=== PATIENT | male | born 1985 | race Caucasian/White ===

== ENCOUNTER 2020-07-06 00:52 | Outpatient (CLI) | payer SELFPAY ==
[2020-07-06 18:31] LABS: SARS-CoV-2 RNA PCR Negative
== END 2020-07-06 00:53 | disposition home or self-care (01) ==
LOC: ANHCOVIDDT 00:53
PROVIDERS: Visit Provider Surgery
DX: Z01.812 Encounter for preprocedural laboratory examination (principal); Z20.828 Contact with and (suspected) exposure to other viral communicable diseases
CPT/HCPCS: 87635; C9803; U0003

== ENCOUNTER 2020-07-10 02:18 | Day surgery (SDC) | payer OTHER, SELFPAY ==
[2020-07-02 12:39] VITALS: BMI 33.5
[2020-07-10] VITALS (7 sets, daily range): BP systolic 104–144; BP diastolic 56–99; PULSE 53–72; RESP 12–20; TEMP 35.9–36.1; O2SAT 99–100; BMI 34.3
[2020-07-10] MEDS: ACETAMINOPHEN 500 MG TABLET 1000 MG PO (08:28)
[2020-07-10] MEDS: LACTATED RINGERS 1,000 ML 30 ML IV CONT ×2 (08:41→11:41)
[2020-07-10] MEDS: KETOROLAC 15 MG/ML VIAL (*BKC) IV PUSH (08:45)
--- NOTE | 2020-07-10 09:45 | WPDANESEPPF ---
Anes - Initial Pre Proc Eval Procedure: Operation Date: 07/10/20 10:00 Proposed Procedures p Laparoscopic Left Inguinal Hernia Repair with Mesh, Davinci Assisted - Kahlil Atkins DO Date/Time: 07/10/20 09:45 Surgeon: Kahlil Atkins DO Pre Op Diagnosis: left inguinal hernia Patient Data Age: 34 Gender: M Height: 6 ft 4 in Weight: 127.9 kg Last Vital Signs Temp 36.1 C L 07/10/20 08:50 Pulse 72 07/10/20 08:50 Resp 18 07/10/20 08:50 BP 128/69 07/10/20 08:50 Pulse Ox 100 07/10/20 08:50 Allergies Allergy/AdvReac Type Severity Reaction Status Date / Time Penicillins Allergy Mild Anaphylaxis Verified 07/10/20 08:25 Home Medications Medication Instructions Recorded Confirmed Type clonidine HCl 0.1 mg tablet 0.1 mg PO DAILY 06/19/20 07/10/20 History loratadine 10 mg capsule 10 mg PO DAILY 06/19/20 07/10/20 History Patient hx anesthesia problems: none Family hx anesthesia problems: none [facility] Past Medical History Medical History Hypertension Surgical History Surgical History (Updated 07/10/20 @ 09:49 by Yonathan Graf MD) History of ear surgery S/P tonsillectomy Family History Family History Grandparent Diabetes mellitus Malignant neoplasm of prostate Social History Social History Smoking status: Current every day smoker Tobacco type: e-cigarettes/vaping Second hand tobacco smoke exposure: Yes Alcohol intake: former Alcohol use details: QUITE 2015 Substance use: current Substance use type: marijuana Other substance usage details: SMOKES 5GM/WEEK Last use: DAILY Living arrangements: alone 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 Questions were solicited and answers provided to the satisfaction of the patient/family/POA.
--- NOTE | 2020-07-10 09:47 | WPDHPUPDATE1 ---
History and Physical Update Update Date/Time: 07/10/20 09:47 History and Physical has been reviewed, including an updated exam of the patient. There are NO changes in the patient's condition. Risks, benefits, and alternatives have been discussed and questions answered. Patient agrees to proceed with procedure.
[2020-07-10] MEDS: CLINDAMYCIN 900 MG/D5W 50 ML 900 MG/50 ML PIGGYBACK 50 MG IVPB (10:09)
--- NOTE | 2020-07-10 10:51 | SUR.OPER ---
Implant ProGrip Mesh LPG [id number], Exp 2022. Left Inguinal
--- NOTE | 2020-07-10 11:51 | PM.PROC ---
Procedure Note - Detailed Date of procedure: 07/10/20 Pre-op diagnosis: left inguinal hernia Post-op diagnosis: same (Indirect left inguinal hernia) Procedure performed: Laparoscopic left inguinal hernia repair with Progrip mesh, da Bhavin assisted Description of procedure: Procedure as well as risks, benefits, and alternatives were discussed with the patient. Written consent was obtained and placed in chart prior to procedure. Patient was brought back to surgical suite. He was placed supine on operating table. Time-out was done to confirm patient and procedure. He was then intubated by Anesthesia Department. His abdomen was prepped and draped in sterile fashion using chlorhexidine prep. 0.5% bupivacaine with epinephrine was infiltrated at each location for incision. An 8 mm incision was made in the left lateral abdomen, and a 5 mm Optiview trocar was advanced through the abdominal layers under direct visualization. Once inside the abdominal cavity, carbon dioxide insufflation was used to create a pneumoperitoneum. A camera was inserted and the abdominal cavity was inspected. The patient was placed in slight Trendelenburg position. An 8 millimeter incision was made on the right lateral abdomen and an 8 millimeter trocar was inserted under direct visualization. Another 8 millimeter incision was made just superior to the umbilicus and an 8 millimeter trocar was inserted under direct visualization. The 5 mm port was then removed and this was replaced with another 8 mm robotic port. The robotic arms were brought up to the patient's bedside and secured to the ports. The camera and instruments were inserted. I then moved over to the robotic console and took control of the camera and instruments. After careful inspection of the abdominal cavity, I began scoring the peritoneum along the left lower quadrant using scissors with electrocautery. The preperitoneal plane was entered and this was carefully dissected caudally along the inferior epigastric vessels. Careful dissection with scissors with electrocautery and blunt dissection was used to continue this dissection. I dissected far enough laterally to allow for mesh placement, and also dissected medially to identify the pubic arch and Lee's ligament. The hernia sac was identified and carefully dissected posteriorly. The cord contents were also identified and the peritoneum was carefully dissected far enough posteriorly to allow for mesh placement. Once an adequate pocket was created, I then placed the mesh within the preperitoneal pocket and carefully unfolded it. The mesh was centered on the hernia defect with adequate overlap circumferentially. The inferior edge of the mesh was inspected to ensure that it was far enough away from the peritoneal edge. The mesh appeared in proper position overlying the entire myopectineal orifice. The peritoneum was then closed over the mesh using a 3-0 V-lock running absorbable suture. The robotic instruments were removed. The robotic arms were disengaged from the ports and moved away from the bedside. The patient was flattened out in bed, the ports were removed under direct visualization, and the pneumoperitoneum was released. The skin of the incisions was approximated using 4-0 Monocryl subcuticular suture, and Exofin glue was applied on top. The patient was awakened from anesthesia, extubated, and transferred to recovery. Implants: Progrip Mesh 10cm x 15cm Anesthesia: GETA and local (0.5% bupivicaine with epi) Surgeon: Kahlil Atkins DO Estimated blood loss (mL): 5 Drains: No Packing: No Pathology: none sent Complications: No immediate complications Condition: stable Disposition: same day Findings: This is a 34-year-old man who presented with pain in his left groin after experiencing an injury at work about 1 month ago. He had a CT done which showed evidence of a small fat containing left inguinal hernia. A reducible left inguinal hernia was palpable on
[2020-07-10] MEDS: fentaNYL CITRATE INJ (*CRX) 100 MCG/2 ML VIAL 25 MCG IV PUSH ×3 (11:57→12:12)
== END 2020-07-10 13:21 | disposition home or self-care (01) ==
PROVIDERS: PCP Nurse Practitioner Family; Visit Provider Surgery
PROC: 8E0Y4CZ Robotic Assisted Procedure of Lower Extremity, Percutaneous Endoscopic Approach (ICD-10-PCS; CPT 49650; principal; 2020-07-10 10:00)
DX: K40.90 Unilateral inguinal hernia, without obstruction or gangrene, not specified as recurrent (principal); I10 Essential (primary) hypertension; F17.290 Nicotine dependence, other tobacco product, uncomplicated; E66.9 Obesity, unspecified; Z68.34 Body mass index [BMI] 34.0-34.9, adult
CPT/HCPCS: 49650; S2900; 36415; 86850; 86900; 86901; A9270; C1781; J1100; J1885; J2250; J2405; J2704; J2710; J3010; J7030; J7120

== ENCOUNTER → 2021-06-11 14:00 | Outpatient (CLI) | payer SELFPAY ==
--- NOTE | ~2021-06-11 | MR_ITS ---
EXAMINATION: MR abdomen wo con INDICATION: Pancreatic mass TECHNIQUE: Coronal SSFSE ARC, WATER:coronal LAVA-FLEX, Coronal 2D FIESTA FatSat, Axial SSFSE BH ARC, Axial 3D DualEcho BH, Axial SSFSE-IR, Axial DWI b=500, Axial 2D FIESTA FatSat, pre and dynamic postco ntrast Axial LAVA ARC, postcontrast Coronal In and Opposed phase LAVA FLEX COMPARISON: None available CONTRAST: None FINDINGS: Evaluation for pancreatic mass is limited by the absence of intravenous contrast. The pancr eas appears normal. There is no pancreatic ductal dilatation. There is a 1.3 cm cyst of the liver. Th e spleen, gallbladder, and adrenal glands are normal. There is a 1.3 cm cyst in the lower pole of the left kidney. There are no pathologically enlarged abdominal lymph nodes. No dilated loops of bowel a re identified. IMPRESSION: 1. No pancreatic mass identified, evaluation limited by the absence of intravenous contrast. Reviewed, dictated and finalized at location B. IMPRESSION: 1. No pancreatic mass identified, evaluation limited by the absence of intraven ous contrast.
== END ==
PROVIDERS: PCP Internal Medicine; Visit Provider Internal Medicine
DX: K86.89 Other specified diseases of pancreas (principal); K76.89 Other specified diseases of liver
CPT/HCPCS: 74181

== ENCOUNTER 2021-07-31 11:06 | Emergency (ER) | payer SELFPAY ==
[2021-07-31 11:21] VITALS: BP 178/91; PULSE 87; RESP 16; TEMP 36.5; O2SAT 96
--- NOTE | 2021-07-31 11:28 | ECG_ITS ---
Measurements Intervals [place] Rate: 70 P: 25 FL: 128 QRS: 32 QRSD: 100 T: -3 QT: 373 QTc: 403 Interpretive Statements SINUS RHYTHM WITH SINUS ARRHYTHMIA POSSIBLE LEFT VENTRICULAR HYPERTROPHY CONSIDER INFERIOR INFARCT, AGE INDETERMINATE ABNORMAL ECG Electronically Signed On 07-31-2021 17:04:57 [employer] by Joni Martins D.O.
--- NOTE | 2021-07-31 11:28 | ED.GENADULT ---
HPI - General Adult General Chief complaint: Anxiety Stated complaint: possible panic attack/lt side of face feels funny Source: patient Mode of arrival: ambulatory Limitations: no limitations History of Present Illness HPI narrative: Yash is a 35M with a PMH of Bipolar depression that presented to the emergency department with anxiety. He started having episodes of anxiety a couple weeks ago and was given ativan by his primary care doctor. Yesterday he had a 3 hour episode of palpitations and anxiety that went away with ativan. He felt anxious and called his primary care doctor who referred him here. He currently admits feeling anxious about everything. However, he specifically denies SI/HI, palpitations, CP, SOB, lightheadedness, and abdominal pain. Related Data Home Medications Medication Instructions Recorded Confirmed clonidine HCl 0.1 mg tablet 0.1 mg PO DAILY 06/19/20 07/25/20 loratadine 10 mg capsule 10 mg PO DAILY 06/19/20 07/25/20 acetaminophen 500 mg tablet 500 mg PO Q6H PRN 07/23/20 07/25/20 lamotrigine 100 mg tablet 100 mg PO DAILY 05/28/21 Allergies Allergy/AdvReac Type Severity Reaction Status Date / Time Penicillins Allergy Severe Anaphylactic Verified 07/31/21 11:19 Shock Review of Systems Review of Systems: All systems reviewed & are unremarkable except as noted in HPI and below Constitutional: Constitutional: Reports no additional constitutional complaints Eyes: Eyes: Reports no additional eye complaints ENT: Reports system reviewed and no additional complaints, except as documented Cardiovascular: Cardiovascular: Reports no additional cardiovascular complaints Respiratory: Respiratory: Reports no additional respiratory complaints Gastrointestinal: Gastrointestinal: Reports no additional gastrointestinal complaints Genitourinary: Genitourinary: Reports no additional male genitourinary complaints Musculoskeletal: Musculoskeletal: Reports no additional musculoskeletal complaints Integumentary/Breasts: Skin/Breast: Reports system reviewed and no additional complaints, except as docu Neurologic: Reports system reviewed and no additional complaints, except as documented Psychiatric: Psychiatric: Reports as per HPI Endocrine: Endocrine: Reports no additional endocrine complaints Hematologic/Lymphatic: Hematologic/Lymphatic: Reports no additional hematologic/lymphatic complaints Allergic/Immunologic: Allergic/Immunologic: Reports no additional allergic/immunologic complaints [facility] Past Medical History Medical History BMI 34.0-34.9,adult Hypertension Left inguinal hernia Surgical History Surgical History History of ear surgery History of inguinal hernia repair 07/10/2020 laparoscopic left inguinal hernia repair with Progrip mesh, daVinci assisted. 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
[2021-07-31] MEDS: LORazepam (*CRX) 0.5 MG TABLET PO (11:36)
[2021-07-31 12:09] VITALS: BP 134/87; PULSE 65; RESP 15; TEMP 36.2; O2SAT 94
== END 2021-07-31 12:11 | disposition home or self-care (01) ==
PROVIDERS: Emergency Provider Family Medicine; PCP Internal Medicine
DX: F41.9 Anxiety disorder, unspecified (principal)
CPT/HCPCS: 93005; 99282; 99283; A9270

== ENCOUNTER → 2022-02-11 10:50 | Outpatient (CLI) | payer SELFPAY ==
--- NOTE | ~2022-02-11 | XR_ITS ---
XR ankle RT min 3V DATE: 02/11/2022 11:11 INDICATION: Fall. Swelling and pain. TECHNIQUE: 4 views COMPARISON: None FINDINGS: Mild lateral soft tissue swelling. No fracture or dislocation of the ankle or disruption of the ankle mortise. No periosteal reaction or bone destruction. IMPRESSION: Lateral soft tissue swelling; no fracture or dislocation Reviewed, dictated and finalized at location A.
== END ==
PROVIDERS: PCP Internal Medicine; Visit Provider Internal Medicine
DX: M25.571 Pain in right ankle and joints of right foot (principal); M79.89 Other specified soft tissue disorders
CPT/HCPCS: 73610